=== PATIENT | male | born 1960 | race Caucasian/White ===

== ENCOUNTER 2016-12-12 11:20 | Day surgery (SDC) | payer OTHER ==
[2016-12-09 15:26] VITALS: BMI 25.1
[~2016-12-12 11:20] MED LIST: LACTATED RINGERS 1,000 ML IV SCH
[2016-12-12 11:58] VITALS: RESP 16; TEMP 97.9
[2016-12-12] MEDS ORDERED: LIDOCAINE 1% 20 ML VIAL (10MG/ML) FOR IV START INTRADERMA ONE (12:06)
[2016-12-12] MEDS ORDERED: PROPOFOL 10 MG/ML 20 ML VIAL IV ONE (12:10)
--- NOTE | 2016-12-12 12:31 | P.PCN ---
Date of Procedure: 12/12/16 Procedure(s) Performed: Brief history: Patient is a pleasant 56-year-old white male, scheduled for an elective upper endoscopy as well as colonoscopy as a part of evaluation of epigastric pain, 1 episode of black tarry stools that happened about a week ago. He lately has been having some heartburn symptoms also. He is on Zantac 150 mg daily for the last 1 week and feels much better. He has prior history of peptic ulcer disease. Has prior history of colon polyps and hence scheduled for colonoscopy today. Procedure performed: Esophagogastroduodenoscopy with biopsy Colonoscopy Preoperative diagnosis: Epigastric pain/melena History of colon polyps Anesthesia: MAC Procedure: After informed consent was obtained from the patient was brought into the endoscopy unit and IV conscious sedation was administered by anesthesia under continuous monitoring. Initially upper endoscopy was done. The Olympus GF 160 video endoscope was inserted inserted into the mouth and esophagus intubated without any difficulty and was gradually advanced into the stomach and duodenum and carefully examined. In the bulb of the duodenum there were multiple erosions identified but no active bleeding or ulcerations seen. The second portion of the duodenum there was a 2 cm submucosal polyp identified which was biopsied and most likely represents a lipoma. The scope was then withdrawn into the stomach adequately insufflated with air and upon careful examination the antrum had mild diffuse gastritis and biopsies were done from this area. The body, cardia and fundus appeared normal. The scope was then withdrawn into the esophagus. The GE junction was located at 40 cm to the incisors. It appeared regular with no erythema erosions or ulcerations. Rest of the esophagus appeared normal. Patient tolerated the procedure well. At this time the patient continued to remain sedation. Initial digital rectal examination was normal. Olympus CF 160 video colonoscope was then inserted into the rectum and gradually advanced to the cecum without any difficulty. Careful examination was performed as the scope was gradually being withdrawn. The prep was excellent. The cecum, ascending colon, transverse colon, descending colon, sigmoid colon and rectum appeared normal. Scattered sigmoid diverticulosis seen. Retroflexion was performed in the rectum and no lesions were noted. Patient tolerated the procedure well. Impression: 1. Upper endoscopy revealed mild gastritis and duodenitis and duodenal submucosal polyp that was biopsied 2. Colonoscopy revealed scattered similar diverticulosis but no evidence of colitis or colorectal neoplasia. Recommendations: Findings of this examination were discussed with the patient as well as[ his family. He was advised to follow with the biopsy results. He will continue with Zantac 150 mg daily. He can have a repeat colonoscopy in 5 years.
[2016-12-12 13:10] VITALS: BP 132/80; PULSE 63
== END 2016-12-12 13:31 | disposition home or self-care (01) ==
LOC: ORWHC2ENDO 11:20
PROVIDERS: ATTEND Internal Medicine Gastroenterology
DX: K31.7 Polyp of stomach and duodenum (principal); K57.30 Diverticulosis of large intestine without perforation or abscess without bleeding; K29.50 Unspecified chronic gastritis without bleeding; Z86.010 Personal history of colon polyps; Z87.11 Personal history of peptic ulcer disease; K21.9 Gastro-esophageal reflux disease without esophagitis; Z79.891 Long term (current) use of opiate analgesic; Z79.899 Other long term (current) drug therapy
CPT/HCPCS: 88305; 88342; 45378; 43239; J2704

== ENCOUNTER 2021-01-13 11:50 | Emergency (ER) | payer OTHER ==
[2021-01-13] MEDS ORDERED: SODIUM CHLORIDE 0.9% 1,000 ML IV STA (12:19)
[2021-01-13 12:50] VITALS: RESP 18
--- NOTE | 2021-01-13 12:59 | ED ---
General Adult HPI - General Chief complaint: Shortness of Breath Stated complaint: sob Time Seen by Provider: 01/13/21 12:14 Source: patient, RN notes reviewed, old records reviewed Mode of arrival: wheelchair Limitations: no limitations - History of Present Illness Initial comments: 61-year-old male presenting for evaluation of dyspnea and not feeling well. Patient states he feels like he overdosed on his [place] but states he only took one pill. He does admit to heavy alcohol consumption yesterday. He denies fever. Denies significant cough. Denies central chest pain. Denies lower extremity swelling. Uncertain if he's coming contact with coronavirus. - Related Data Home Medications Medication Instructions Recorded Confirmed HYDROcodone/APAP 5-325MG [[place] 2 tab PO Q4HR PRN 12/09/16 12/12/16 5-325] Gabapentin [Neurontin] 300 mg PO TID 01/13/21 01/13/21 Previous Rx's Medication Instructions Recorded Amoxicillin/Potassium Clav 1 tab PO Q12HR 10 Days #20 tab 01/13/21 [Augmentin 875-125 Tablet] Doxycycline [Vibramycin] 100 mg PO BID 10 Days #20 capsule 01/13/21 Allergies Allergy/AdvReac Type Severity Reaction Status Date / Time No Known Allergies Allergy Verified 01/13/21 14:09 Review of Systems ROS Statement: Those systems with pertinent positive or pertinent negative responses have been documented in the HPI. ROS Other: All systems not noted in ROS Statement are negative. Past Medical History Past Medical History: Musculoskeletal Disorder History of Any Multi-Drug Resistant Organisms: None Reported Past Surgical History: Back Surgery Past Anesthesia/Blood Transfusion Reactions: No Reported Reaction Smoking Status: Vaper Past Alcohol Use History: Occasional Past Drug Use History: None Reported - Past Family History Mother Family Medical History: No Reported History General Exam Limitations: no limitations General appearance: alert, appears intoxicated Head exam: Present: atraumatic, normocephalic Eye exam: Present: normal appearance, PERRL ENT exam: Present: normal exam Neck exam: Present: normal inspection. Absent: tenderness, meningismus Respiratory exam: Present: normal lung sounds bilaterally. Absent: respiratory distress, wheezes, rales, rhonchi Cardiovascular Exam: Present: regular rate, normal rhythm GI/Abdominal exam: Present: soft. Absent: distended, tenderness, guarding, rebound Extremities exam: Present: normal inspection, normal capillary refill Neurological exam: Present: alert, oriented X3, CN II-XII intact. Absent: motor sensory deficit Psychiatric exam: Present: normal affect, normal mood Skin exam: Present: warm, dry, intact. Absent: cyanosis, diaphoretic Course Vital Signs 01/13/21 01/13/21 11:56 12:50 Temperature 97.3 F L Pulse Rate 102 H 80 Respiratory 23 18 Rate Blood Pressure 136/84 137/75 O2 Sat by Pulse 100 100 Oximetry EKG Findings - EKG Comments: EKG Findings:: EKG: Normal sinus rhythm, rate 75, AR interval 166, QRS duration 88, QTC 448, no ST segment elevation. Medical Decision Making - Medical Decision Making 61-year-old male with presented for evaluation of dyspnea, and complaints of left feeling right stating that he felt he was overdosed. He does admit to heavy alcohol consumption. His alcohol level remains elevated at 146. He is clinically intoxicated. He has a normal CBC, CMP showing a mild acidosis CO2 of 18. Troponin negative. Chest x-ray showing no right middle lobe pneumonia. Patient will be started on antibiotics given return parameters. Patient not driving. - Lab Data Result diagrams: 01/13/21 12:40 01/13/21 12:40 Lab Results 01/13/21 01/13/21 01/13/21 Range/Units 12:40 12:40 12:40 WBC 5.4 (3.8-10.6) k/uL RBC 4.45 (4.30-5.90) m/uL Hgb 15.0 (13.0-17.5) gm/dL Hct 43.3 (39.0-53.0) % MCV 97.1 (80.0-100.0) fL MCH 33.7 (25.0-35.0) pg MCHC 34.7 (31.0-37.0) g/dL RDW 14.0 (11.5-15.5) % Plt Count 173 (150-450) k/uL MPV 9.2 PT 9.5 (9.0-12.0) sec INR 0.9 (<1.2) APTT 23.9 (22.0-30.0) sec D-Dimer 0.35 (<0.60) mg/L FEU Sodium 138 (137-145) mmol/L Potassium 3.4 L (3.5-5.1) mmol/L Chloride 104 (98-107) mmol/L Carbon Dioxide 18 L (22-30) mmol/L Anion Gap 16 mmol/L BUN 9 (9-20) mg/dL Creatinine 0.76 (0.66-1.25) mg/dL Est GFR (CKD-EPI)AfAm >90 (>60 ml/min/1.73 sqM) Est GFR (CKD-EPI)NonAf >90 (>60 ml/min/1.73 sqM) Glucose 85 (74-99) mg/dL Calcium 9.6 (8.4-10.2) mg/dL Magnesium 1.8 (1.6-2.3) mg/dL Total Bilirubin 0.6 (0.2-1.3) mg/dL AST 37 (17-59) U/L ALT 15 (4-49) U/L Alkaline Phosphatase 52 (38-126) U/L Troponin I (0.000-0.034) ng/mL Total Protein 7.5 (6.3-8.2) g/dL Albumin 4.6 (3.5-5.0) g/dL Serum Alcohol 136 mg/dL Coronavirus (PCR) (Not Detectd) 01/13/21 01/13/21 Range/Units 12:40 12:55 WBC (3.8-10.6) k/uL RBC (4.30-5.90) m/uL Hgb (13.0-17.5) gm/dL Hct (39.0-53.0) % MCV (80.0-100.0) fL MCH (25.0-35.0) pg MCHC (31.0-37.0) g/dL RDW (11.5-15.5) % Plt Count (150-450) k/uL MPV PT (9.0-12.0) sec INR (<1.2) APTT (22.0-30.0) sec D-Dimer (<0.60) mg/L FEU Sodium (137-145) mmol/L Potassium (3.5-5.1) mmol/L Chloride (98-107) mmol/L Carbon Dioxide (22-30) mmol/L Anion Gap mmol/L BUN (9-20) mg/dL Creatinine (0.66-1.25) mg/dL Est GFR (CKD-EPI)AfAm (>60 ml/min/1.73 sqM) Est GFR (CKD-EPI)NonAf (>60 ml/min/1.73 sqM) Glucose (74-99) mg/dL Calcium (8.4-10.2) mg/dL Magnesium (1.6-2.3) mg/dL Total Bilirubin (0.2-1.3) mg/dL AST (17-59) U/L ALT (4-49) U/L Alkaline Phosphatase (38-126) U/L Troponin I <0.012 (0.000-0.034) ng/mL Total Protein (6.3-8.2) g/dL Albumin (3.5-5.0) g/dL Serum Alcohol mg/dL Coronavirus (PCR) Not Detected (Not Detectd) Disposition Clinical Impression: Community acquired pneumonia, Alcohol intoxication Disposition: HOME SELF-CARE Condition: Fair Instructions (If sedation given, give patient instructions): Bacterial Pneumonia (ED) Prescriptions: Amoxicillin/Potassium Clav [Augmentin 875-125 Tablet] 1 tab PO Q12HR 10 Days #20 tab Doxycycline [Vibramycin] 100 mg PO BID 10 Days #20 capsule Is patient prescribed a controlled substance at d/c from ED?: No Referrals: Yaniv Garibay MD [Primary Care Provider] - 1-2 days Time of Disposition: 14:08
--- NOTE | 2021-01-13 13:16 | XR ---
EXAMINATION TYPE: XR chest 2V DATE OF EXAM: 01/13/2021 COMPARISON: Chest x-ray September 11, 2013 HISTORY: Palpitations. TECHNIQUE: Frontal and lateral views of the chest are obtained. FINDINGS: There is a new small focus of nodular consolidation right mid to lower lung on frontal vie w less well seen on lateral view. Left lung is clear. Cardiac silhouette size stable and within adriano l limits. Visualized osseous structures are intact. IMPRESSION: Suspect early acute infiltrate right mid to lower lung, correlate clinically.
[2021-01-13 13:30] LABS: ALT 15 U/L (4-49); AST 37 U/L (17-59); African American GFR (CKD) >90 (>60 ml/min/1.73 sqM); Albumin 4.6 g/dL (3.5-5.0); Alkaline Phosphatase 52 U/L (38-126); Anion Gap 16 mmol/L; Blood Urea Nitrogen 9 mg/dL (9-20); Calcium 9.6 mg/dL (8.4-10.2); Carbon Dioxide 18 mmol/L (22-30); Chloride 104 mmol/L (98-107); Glucose 85 mg/dL (74-99); Magnesium 1.8 mg/dL (1.6-2.3); Non-African American GFR(CKD) >90 (>60 ml/min/1.73 sqM); Potassium 3.4 mmol/L (3.5-5.1); Sodium 138 mmol/L (137-145); Total Bilirubin 0.6 mg/dL (0.2-1.3); Total Protein 7.5 g/dL (6.3-8.2)
[2021-01-13 13:34] LABS: Alcohol 136 mg/dL
[2021-01-13 13:42] LABS: HCT 43.3 % (39.0-53.0); MCH 33.7 pg (25.0-35.0); MCHC 34.7 g/dL (31.0-37.0); MCV 97.1 fL (80.0-100.0); Mean Platelet Volume 9.2; Platelet Count 173 k/uL (150-450); RBC 4.45 m/uL (4.30-5.90); WBC 5.4 k/uL (3.8-10.6)
[2021-01-13 13:43] LABS: D-Dimer 0.35 mg/L FEU (<0.60); INR 0.9 (<1.2); Partial Thromboplastin Time 23.9 sec (22.0-30.0); Prothrombin Time 9.5 sec (9.0-12.0)
[2021-01-13 14:22] VITALS: BP 154/90; PULSE 84; TEMP 98
[2021-01-13 14:41] LABS: Eosinophils # (M) 0.05 k/uL (0-0.7); Lymphocytes # (M) 1.78 k/uL (1.0-4.8); Monocytes # (M) 0.65 k/uL (0-1.0); Neutrophils # (M) 2.92 k/uL (1.3-7.7); Neutrophils % (M) 54 %; Nucleated Red Blood Cells 0 /100 WBC (0-0); Total Cells Counted 100
[2021-01-13 14:42] LABS: Reactive Lymphocytes Present
== END 2021-01-13 14:25 | disposition home or self-care (01) ==
LOC: EC 11:50
DX: J18.9 Pneumonia, unspecified organism (principal); F10.129 Alcohol abuse with intoxication, unspecified
CPT/HCPCS: 36415; 71046; 80053; 80320; 83735; 84484; 85025; 85379; 85610; 85730; 87635; 93005; 96360; 96361; 99285

== ENCOUNTER 2022-05-01 14:19 | Inpatient (IN) | payer BC, OTHER ==
[2022-05-01 16:22] LABS: Basophils % (A) 1 %; Eosinophils # (A) 0.1 k/uL (0-0.7); Eosinophils % (A) 1 %; HCT 40.5 % (39.0-53.0); HGB 13.3 gm/dL (13.0-17.5); Lymphocytes % (A) 15 %; MCH 33.9 pg (25.0-35.0); MCHC 32.9 g/dL (31.0-37.0); Macrocytosis Slight; Mean Platelet Volume 9.6; Monocytes # (A) 0.5 k/uL (0-1.0); Monocytes % (A) 7 %; Neutrophils # (A) 5.2 k/uL (1.3-7.7); Neutrophils % (A) 75 %; Platelet Count 122 k/uL (150-450); RBC 3.93 m/uL (4.30-5.90)
[2022-05-01 16:31] LABS: ALT 20 U/L (4-49); AST 33 U/L (17-59); African American GFR (CKD) >90 (>60 ml/min/1.73 sqM); Albumin 4.6 g/dL (3.5-5.0); Alkaline Phosphatase 45 U/L (38-126); Anion Gap 6 mmol/L; Blood Urea Nitrogen 7 mg/dL (9-20); Calcium 9.6 mg/dL (8.4-10.2); Carbon Dioxide 27 mmol/L (22-30); Chloride 92 mmol/L (98-107); Glucose 104 mg/dL (74-99); Non-African American GFR(CKD) >90 (>60 ml/min/1.73 sqM); Sodium 125 mmol/L (137-145); Total Bilirubin 1.1 mg/dL (0.2-1.3); Total Protein 7.4 g/dL (6.3-8.2)
[2022-05-01 16:37] LABS: INR 0.9 (<1.2); Partial Thromboplastin Time 24.6 sec (22.0-30.0); Prothrombin Time 9.5 sec (9.0-12.0)
--- NOTE | 2022-05-01 16:37 | XR ---
EXAMINATION TYPE: XR chest 2V DATE OF EXAM: 05/01/2022 COMPARISON: Chest x-ray January 13, 2021 HISTORY: Difficulty in breathing. TECHNIQUE: Frontal and lateral views of the chest are obtained. FINDINGS: Stable focal nodular opacity right mid to lower lung. Suspect focal scarring. There is no n ew suspicious focal air space opacity, pleural effusion, or pneumothorax seen. The cardiac silhouett e size remains within normal limits. The osseous structures are intact. IMPRESSION: No acute pulmonary process.
[2022-05-01] MEDS ORDERED: SODIUM CHLORIDE 0.9% 500 ML 500 ML IV ONE ×2 (17:18→17:44)
--- NOTE | 2022-05-01 17:21 | ED ---
General Adult HPI - General Chief complaint: Shortness of Breath Stated complaint: SOB-Wants covid screening Time Seen by Provider: 05/01/22 17:10 Source: patient, RN notes reviewed, old records reviewed Mode of arrival: ambulatory Limitations: no limitations - History of Present Illness Initial comments: This is a 62-year-old well-appearing male that presents ambulatory with complaints of shortness of breath and generalized malaise. Patient states that he does drink daily a pint of vodka. He states he was drinking Thursday night when he had a fall landing on his back. Sustaining some bruises to his right flank. No loss of consciousness, did not hit his head. Patient does have history of chronic back pain and takes gabapentin and [place]. -: days(s) (5) Location: back Severity scale (1-10): 3 Associated Symptoms: malaise, shortness of breath, weakness - Related Data Home Medications Medication Instructions Recorded Confirmed Gabapentin [Neurontin] 300 mg PO TID 01/13/21 05/01/22 HYDROcodone/APAP 7.5-325MG [[place] 1 tab PO TID 05/01/22 05/01/22 7.5-325] Tamsulosin [Flomax] 0.4 mg PO DAILY 05/01/22 05/01/22 Valsartan/Hydrochlorothiazide 1 tab PO DAILY 05/01/22 05/01/22 [Valsartan-Hctz 160-25 mg Tab] Allergies Allergy/AdvReac Type Severity Reaction Status Date / Time No Known Allergies Allergy Verified 05/01/22 17:46 Review of Systems ROS Statement: Those systems with pertinent positive or pertinent negative responses have been documented in the HPI. ROS Other: All systems not noted in ROS Statement are negative. Past Medical History Past Medical History: Musculoskeletal Disorder History of Any Multi-Drug Resistant Organisms: None Reported Past Surgical History: Back Surgery Past Anesthesia/Blood Transfusion Reactions: No Reported Reaction Past Psychological History: No Psychological Hx Reported Smoking Status: Vaper Past Alcohol Use History: Occasional Past Drug Use History: None Reported - Past Family History Mother Family Medical History: No Reported History General Exam Limitations: no limitations General appearance: alert, in no apparent distress Head exam: Present: atraumatic, normocephalic, normal inspection Eye exam: Present: normal appearance. Absent: scleral icterus, conjunctival injection Neck exam: Present: normal inspection, full ROM. Absent: tenderness, meningismus Respiratory exam: Present: normal lung sounds bilaterally. Absent: respiratory distress, accessory muscle use Cardiovascular Exam: Present: tachycardia GI/Abdominal exam: Present: soft. Absent: distended, tenderness Extremities exam: Present: full ROM, pedal edema (1+ bilateral pedal) Back exam: Present: full ROM, tenderness (Right flank with ecchymosis). Absent: CVA tenderness (R), CVA tenderness (L), rash noted Neurological exam: Present: alert, oriented X3, normal gait Psychiatric exam: Present: normal affect, normal mood Skin exam: Present: warm, dry, normal color. Absent: cyanosis, diaphoretic, petechiae, pallor Course Vital Signs 05/01/22 05/01/22 15:55 18:32 Temperature 98.3 F Pulse Rate 107 H 96 Respiratory 19 18 Rate Blood Pressure 171/92 129/71 O2 Sat by Pulse 99 98 Oximetry EKG Findings - EKG Results: EKG: sinus rhythm (Ventricular rate 89, FL interval 0.182, QRS 0.85, QTC 0.379 normal axis) Medical Decision Making - Medical Decision Making Patient presents with shortness of breath and generalized malaise. He states that he did have a fall Thursday night but had been drinking. Patient does drink a pint of vodka a day. Does smoke up to 2 packs of cigarettes a day. Patient is ambulatory in the room with a steady gait. There is some bruising to his right flank. He has no focal neurological deficits. No evidence of leukocytosis. Sodium level is 125, chloride 92, glucose 104. Chest x-ray shows no acute cardiopulmonary process. Patient's hyponatremia may be related to his gabapentin use. He was given IV fluids will be admitted to the hospital for hyponatremia. He was placed lynne CIWA protocol since he does drink a pint of vodka a day. Patient is agreeable to this plan of care. Case was discussed with Dr. Solis. - Lab Data Result diagrams: 05/01/22 16:11 05/01/22 16:11 Lab Results 05/01/22 05/01/22 05/01/22 Range/Units 16:11 16:11 16:11 WBC 7.0 (3.8-10.6) k/uL RBC 3.93 L (4.30-5.90) m/uL Hgb 13.3 (13.0-17.5) gm/dL Hct 40.5 (39.0-53.0) % MCV 103.0 H (80.0-100.0) fL MCH 33.9 (25.0-35.0) pg MCHC 32.9 (31.0-37.0) g/dL RDW 13.0 (11.5-15.5) % Plt Count 122 L (150-450) k/uL MPV 9.6 Neutrophils % 75 % Lymphocytes % 15 % Monocytes % 7 % Eosinophils % 1 % Basophils % 1 % Neutrophils # 5.2 (1.3-7.7) k/uL Lymphocytes # 1.0 (1.0-4.8) k/uL Monocytes # 0.5 (0-1.0) k/uL Eosinophils # 0.1 (0-0.7) k/uL Basophils # 0.0 (0-0.2) k/uL Macrocytosis Slight PT 9.5 (9.0-12.0) sec INR 0.9 (<1.2) APTT 24.6 (22.0-30.0) sec Sodium 125 L (137-145) mmol/L Potassium 4.0 (3.5-5.1) mmol/L Chloride 92 L (98-107) mmol/L Carbon Dioxide 27 (22-30) mmol/L Anion Gap 6 mmol/L BUN 7 L (9-20) mg/dL Creatinine 0.82 (0.66-1.25) mg/dL Est GFR (CKD-EPI)AfAm >90 (>60 ml/min/1.73 sqM) Est GFR (CKD-EPI)NonAf >90 (>60 ml/min/1.73 sqM) Glucose 104 H (74-99) mg/dL Uric Acid (3.5-8.5) mg/dL Calcium 9.6 (8.4-10.2) mg/dL Total Bilirubin 1.1 (0.2-1.3) mg/dL AST 33 (17-59) U/L ALT 20 (4-49) U/L Alkaline Phosphatase 45 (38-126) U/L Troponin I (0.000-0.034) ng/mL Total Protein 7.4 (6.3-8.2) g/dL Albumin 4.6 (3.5-5.0) g/dL Urine Color Urine Appearance (Clear) Urine pH (5.0-8.0) Ur Specific [place] (1.001-1.035) Urine Protein (Negative) Urine Glucose (UA) (Negative) Urine Ketones (Negative) Urine Blood (Negative) Urine Nitrite (Negative) Urine Bilirubin (Negative) Urine Urobilinogen (<2.0) mg/dL Ur Leukocyte Esterase (Negative) 05/01/22 05/01/22 05/01/22 Range/Units 16:11 17:53 17:53 WBC (3.8-10.6) k/uL RBC (4.30-5.90) m/uL Hgb (13.0-17.5) gm/dL Hct (39.0-53.0) % MCV (80.0-100.0) fL MCH (25.0-35.0) pg MCHC (31.0-37.0) g/dL RDW (11.5-15.5) % Plt Count (150-450) k/uL MPV Neutrophils % % Lymphocytes % % Monocytes % % Eosinophils % % Basophils % % Neutrophils # (1.3-7.7) k/uL Lymphocytes # (1.0-4.8) k/uL Monocytes # (0-1.0) k/uL Eosinophils # (0-0.7) k/uL Basophils # (0-0.2) k/uL Macrocytosis PT (9.0-12.0) sec INR (<1.2) APTT (22.0-30.0) sec Sodium (137-145) mmol/L Potassium (3.5-5.1) mmol/L Chloride (98-107) mmol/L Carbon Dioxide (22-30) mmol/L Anion Gap mmol/L BUN (9-20) mg/dL Creatinine (0.66-1.25) mg/dL Est GFR (CKD-EPI)AfAm (>60 ml/min/1.73 sqM) Est GFR (CKD-EPI)NonAf (>60 ml/min/1.73 sqM) Glucose (74-99) mg/dL Uric Acid 4.8 (3.5-8.5) mg/dL Calcium (8.4-10.2) mg/dL Total Bilirubin (0.2-1.3) mg/dL AST (17-59) U/L ALT (4-49) U/L Alkaline Phosphatase (38-126) U/L Troponin I <0.012 (0.000-0.034) ng/mL Total Protein (6.3-8.2) g/dL Albumin (3.5-5.0) g/dL Urine Color Yellow Urine Appearance Clear (Clear) Urine pH 7.0 (5.0-8.0) Ur Specific [place] 1.010 (1.001-1.035) Urine Protein Negative (Negative) Urine Glucose (UA) Negative (Negative) Urine Ketones 1+ H (Negative) Urine Blood Negative (Negative) Urine Nitrite Negative (Negative) Urine Bilirubin Negative (Negative) Urine Urobilinogen <2.0 (<2.0) mg/dL Ur Leukocyte Esterase Negative (Negative) Disposition Clinical Impression: Hyponatremia, Alcohol abuse, Fall Disposition: ADMITTED IP TO THIS [facility] Referrals: Yaniv Garibay MD [Primary Care Provider] - 1-2 days
[2022-05-01] MEDS ORDERED: THIAMINE 100 MG/ML 2 ML VIAL IM STA (17:47)
[2022-05-01] MEDS ORDERED: LORazepam 2 MG/ML INJ IV PRN ×3 (17:47)
[2022-05-01] MEDS ORDERED: chlordiazePOXIDE 25 MG CAP PO PRN ×4 (17:56)
[2022-05-01] MEDS ORDERED: ACETAMINOPHEN TAB 325 MG TAB PO PRN (17:58)
[2022-05-01] MEDS ORDERED: NALOXONE 0.4 MG/ML 1 ML VIAL IV PRN (17:58)
[2022-05-01] MEDS ORDERED: NICOTINE 21MG/24HR PATCH TRANSDERM STA (18:05)
[2022-05-01 18:31] LABS: Appearance,Urine Clear (Clear); Bilirubin,Urine Negative (Negative); Blood,Urine Negative (Negative); Color,Urine Yellow; Glucose,Urine (UA) Negative (Negative); Ketones,Urine 1+ (Negative); Leukocyte Esterase,Urine Negative (Negative); Nitrite,Urine Negative (Negative); Protein,Urine Negative (Negative); Urobilinogen,Urine <2.0 mg/dL (<2.0)
[2022-05-01 18:35] LABS: Uric Acid 4.8 mg/dL (3.5-8.5)
[2022-05-01] MEDS: HYDROcodone/APAP 7.5-325MG 1 EACH TAB PO SCH (21:20)
[2022-05-02] MEDS ORDERED: THIAMINE 100 MG TAB PO SCH (07:30)
[2022-05-02] MEDS ORDERED: hydroCHLOROthiazide 25 MG TAB PO SCH (09:00)
[2022-05-02] MEDS ORDERED: VALSARTAN 160 MG TAB PO SCH (09:00)
[2022-05-02] MEDS ORDERED: TAMSULOSIN 0.4 MG CAP.ER.24H PO SCH (09:00)
[2022-05-02] MEDS: HYDROcodone/APAP 7.5-325MG 1 EACH TAB PO SCH ×2 (09:34→16:53)
[2022-05-02 09:41] LABS: ALT 18 U/L (4-49); AST 28 U/L (17-59); African American GFR (CKD) >90 (>60 ml/min/1.73 sqM); Albumin 4.2 g/dL (3.5-5.0); Albumin/Globulin Ratio 1.6; Alkaline Phosphatase 35 U/L (38-126); Anion Gap 3 mmol/L; Blood Urea Nitrogen 5 mg/dL (9-20); Calcium 9.2 mg/dL (8.4-10.2); Carbon Dioxide 29 mmol/L (22-30); Chloride 98 mmol/L (98-107); Globulin 2.7 g/dL; Glucose 71 mg/dL (74-99); Non-African American GFR(CKD) >90 (>60 ml/min/1.73 sqM); Potassium 3.9 mmol/L (3.5-5.1); Sodium 130 mmol/L (137-145); Total Bilirubin 1.2 mg/dL (0.2-1.3); Total Protein 6.9 g/dL (6.3-8.2)
[2022-05-02 13:10] VITALS: BP 162/77; PULSE 76; RESP 16; TEMP 98.2
== END 2022-05-02 17:30 | disposition home or self-care (01) | DRG 641 ==
LOC: EC 14:19 → 5NMEDONC 17:58
PROVIDERS: ADMIT Internal Medicine Geriatric Medicine; ATTEND Internal Medicine Geriatric Medicine
DX: E87.1 Hypo-osmolality and hyponatremia (principal); F10.10 Alcohol abuse, uncomplicated; Z20.822 Contact with and (suspected) exposure to COVID-19; F17.290 Nicotine dependence, other tobacco product, uncomplicated; Z91.81 History of falling; G89.29 Other chronic pain; M54.9 Dorsalgia, unspecified; Z79.899 Other long term (current) drug therapy
CPT/HCPCS: 36415; 71046; 80053; 81003; 82533; 83930; 83935; 84443; 84484; 84550; 85025; 85610; 85730; 93005; 96372; 99285